=== PATIENT | male | born 2000 | race Caucasian/White ===

== ENCOUNTER 2023-07-26 08:39 | Emergency (ER) | payer OTHER ==
[~2023-07-26] VITALS: Ht 188 cm; Wt 85.8 kg
[2023-07-26 09:34] LABS: BASO % 0.2 % (0.0-1.0); EOS # 0.1 10^3/uL (0.0-0.5); EOS % 0.5 % (0.0-3.0); HEMATOCRIT 48.4 % (42.0-52.0); HEMOGLOBIN 16.4 g/dl (13.5-17.5); LYMPH # 1.4 10^3/uL (1.5-5.0); LYMPH % 14.9 % (24.0-44.0); MEAN CORPUSCULAR HEMOGLOBIN 30.9 pg (27.0-33.0); MEAN CORPUSCULAR HGB CONC 33.9 g/dl (32.0-36.5); MEAN CORPUSCULAR VOLUME 91.3 fl (80.0-96.0); MONO # 0.9 10^3/uL (0.0-0.8); MONO % 9.5 % (2.0-8.0); NEUTROPHILS # 6.9 10^3/uL (1.5-8.5); NEUTROPHILS % 74.6 % (36.0-66.0); PLATELET COUNT, AUTOMATED 262 10^3/uL (150-450); WHITE BLOOD COUNT 9.3 10^3/uL (4.0-10.0)
[2023-07-26 10:24] LABS: MONO REFLEX EBV COMP NEGATIVE (NEGATIVE)
[2023-07-26] MEDS ORDERED: AMOX875T2 PO (10:34)
[2023-07-26] MEDS ORDERED: dexAMETHasone 4 MG TAB PO ONE (10:35)
[2023-07-26] MEDS ORDERED: AUGMENTIN 875 MG TAB PO ONE (10:35)
[2023-07-26 10:55] VITALS: BP 127/64; TEMP 98; O2SAT 100
[2023-07-27 14:09] LABS: EBV AB TO NUCLEAR ANTIGEN <18.0 U/mL (0.0-17.9); EBV VIRAL CAPSID AG IgG <18.0 U/mL (0.0-17.9); EBV VIRAL CAPSID AG IgM <36.0 U/mL (0.0-35.9)
== END 2023-07-26 10:59 | disposition home or self-care (01) ==
LOC: M ED 08:39
DX: J02.8 Acute pharyngitis due to other specified organisms (principal); F17.210 Nicotine dependence, cigarettes, uncomplicated; Z79.2 Long term (current) use of antibiotics

== ENCOUNTER → 2023-08-02 | Outpatient (CLI) | payer OTHER ==
[~2023-08-02] MED LIST: AMOX875T2 PO
== END ==
LOC: M CARPUL 10:23 → EDUNIT# 10:30
PROVIDERS: ATTEND Physician Assistant
DX: Z01.89 Encounter for other specified special examinations (principal); R94.31 Abnormal electrocardiogram [ECG] [EKG]